=== PATIENT | female | born 1965 | race Caucasian/White ===

== ENCOUNTER 2020-08-21 14:38 | Emergency (ER) | payer OTHER ==
[~2020-08-21 14:38] MED LIST: AMARYL1 MG PO; ASPIRIN EC81 MG PO; ATORVASTATIN CA20 MG PO; CARVEDILOL3.125 MG PO; CLOPIDOGREL75 MG PO; CRESTOR 10 MG T10 MG PO; FLEXERIL 10 MG10 MG PO; GLUCOPHAGE1000 MG PO; HABITROL 14 MG P1 EA TOP; LANTUS INS100 UTS/M1 SQ; LIPITOR80 MG PO; LOPRESSOR 25 MG25 MG PO; NICOTINE PATCH1 EAC5 TD; NITROGLYCERIN0.4 MG SL; NITROSTAT0.4 MG SL; PLAVIX 75 MG TA75 MG PO; PRINIVIL5 MG PO
[2020-08-21 15:34] LABS: HEMOGLOBIN 14.8 gm/dl (12.3-15.3); RED BLOOD COUNT 4.73 M/UL (4.00-5.10); WHITE BLOOD COUNT 10.5 K/UL (4.5-11.0)
[2020-08-21 15:56] LABS: BUN/CREATININE RATIO 38 (0-10)
== END 2020-08-21 18:00 | disposition home or self-care (01) ==
LOC: ER1 14:38
PROVIDERS: Family Medicine
DX: R20.0 Anesthesia of skin (principal); R07.9 Chest pain, unspecified; M54.6 Pain in thoracic spine; I10 Essential (primary) hypertension; E11.9 Type 2 diabetes mellitus without complications; I25.2 Old myocardial infarction; F17.200 Nicotine dependence, unspecified, uncomplicated; Z86.711 Personal history of pulmonary embolism; Z90.49 Acquired absence of other specified parts of digestive tract; Z88.0 Allergy status to penicillin; Z79.899 Other long term (current) drug therapy; Z88.1 Allergy status to other antibiotic agents; Z79.4 Long term (current) use of insulin
CPT/HCPCS: 36415; 70450; 72125; 80053; 82550; 82553; 83874; 84484; 85025; 85379; 93005; 99285; Q9967

== ENCOUNTER → 2020-10-17 | Outpatient (CLI) | payer OTHER | LOC: RAD 11:05 | DX: M79.641 Pain in right hand (principal) | CPT/HCPCS: 73130 ==